=== PATIENT | female | born 2000 | race Caucasian/White ===

== ENCOUNTER 2023-11-16 09:02 | Emergency (ER) | payer OTHER ==
[~2023-11-16] VITALS: Ht 157.5 cm; Wt 54.6 kg
[2023-11-16 09:10] VITALS: BP 98/59; PULSE 77; RESP 16; TEMP 98; O2SAT 99
[2023-11-16] MEDS ORDERED: NAPR-435 PO (10:34)
[2023-11-16] MEDS ORDERED: METH-798 PO (10:34)
== END 2023-11-16 13:18 | disposition home or self-care (01) ==
LOC: ER 09:02
DX: S30.0XXA Contusion of lower back and pelvis, initial encounter (principal); F17.200 Nicotine dependence, unspecified, uncomplicated; Z79.899 Other long term (current) drug therapy; X58.XXXA Exposure to other specified factors, initial encounter; Y93.89 Activity, other specified; Y92.89 Other specified places as the place of occurrence of the external cause; Y99.8 Other external cause status
CPT/HCPCS: 72100; 72170; 72220; 99284